=== PATIENT | female | born 1940 | race Caucasian/White ===

== ENCOUNTER 2017-05-27 14:16 | Emergency (ER) | payer OTHER ==
[~2017-05-27 14:16] MED LIST: ACETAMINOPHEN/H1 TA6 PO; AMBIEN10 MG PO; CIPRO500 MG PO; HYDRALAZINE HCL25 MG; L20 PO; LAC PO; MYCP TOP; NOR5 PO; PAXIL10 MG; TRAMADOL HCL50 MG; TRAMADOL50 MG PO; XAN1 PO; XANAX0.5 MG PO; ZES20 PO; ZOC20 PO; ZOLPIDEM TART10 MG PO
[2017-05-27 15:31] LABS: BASOPHIL % 0.6 % (0-2); PLATELET COUNT 155 x10^3mcL (130-400); RED CELL DISTRIBUTION WIDTH 13.8 % (11.5-14.5)
[2017-05-27 15:52] LABS: CALCIUM 8.3 mg/dL (8.5-10.1); CARBON DIOXIDE 26.4 mmol/L (21-32); CHLORIDE SERUM 102 mmol/L (98-107); CREATININE SERUM 1.1 mg/dL (0.6-1.0); GLUCOSE SERUM 122 mg/dL (74-106); POTASSIUM SERUM 4.3 mmol/L (3.5-5.1); SODIUM SERUM 136 mmol/L (136-145)
[2017-05-27 15:56] LABS: ALKALINE PHOSPHATASE 55 U/L (46-116); ALT/SGPT 15 U/L (14-59); AST/SGOT 14 U/L (15-37); BILIRUBIN TOTAL 0.5 mg/dL (0.20-1.00); TOTAL PROTEIN, SERUM 7.3 g/dL (6.4-8.2)
[2017-05-27 16:00] LABS: ALBUMIN 3.2 g/dL (3.4-5.0)
[2017-05-27] MEDS ORDERED: NORCO1 TA2 (17:40)
[2017-05-27 18:44] VITALS: BP 118/63
[2017-05-27 20:24] LABS: MAGNESIUM 2.2 mg/dL (1.8-2.4); PHOSPHOROUS 3.3 mg/dL (2.5-4.9)
[2017-05-27 20:25] LABS: CHOLESTEROL/HDL RATIO 2.3
[2017-05-27 20:35] LABS: FREE T4 1.02 ng/dL (0.76-1.46); FREE THYROXINE INDEX 1.8 ug/dL (1.4-4.5); T4(THYROXINE) 5.4 ug/dL (4.7-13.3)
== END 2017-05-27 19:20 | disposition left against medical advice (07) ==
LOC: ED 14:16 → DU 17:15 → ED 17:15
PROVIDERS: Emergency Medicine Emergency Medical Services; Family Medicine
DX: J98.01 Acute bronchospasm (principal); R06.02 Shortness of breath; R11.2 Nausea with vomiting, unspecified
CPT/HCPCS: 36415; 83880; 84439; 85378; 87804; J7030; J7613; J7644; Q0092

== ENCOUNTER 2018-09-12 10:25 | Inpatient (IN) | payer OTHER ==
[~2018-09-12] VITALS: Ht 152.4 cm; Wt 60.0 kg
[~2018-09-12 10:25] MED LIST changes: +NORCO1 TA2
[2018-09-12 10:31] VITALS: Ht 152.4 cm; Wt 60.0 kg
[2018-09-12 11:57] LABS: BASOPHIL % 0.2 % (0-2); PLATELET COUNT 188 x10^3mcL (130-400); RED CELL DISTRIBUTION WIDTH 14.4 % (11.5-14.5)
[2018-09-12 12:24] LABS: CALCIUM 9.7 mg/dL (8.5-10.1); CARBON DIOXIDE 32.8 mmol/L (21-32); CHLORIDE SERUM 102 mmol/L (98-107); GLUCOSE SERUM 93 mg/dL (74-106); POTASSIUM SERUM 3.5 mmol/L (3.5-5.1); SODIUM SERUM 143 mmol/L (136-145)
[2018-09-12 12:32] LABS: ALBUMIN 3.7 g/dL (3.4-5.0); ALKALINE PHOSPHATASE 65 U/L (46-116); ALT/SGPT 17 U/L (14-59); AST/SGOT 18 U/L (15-37); BILIRUBIN TOTAL 1.7 mg/dL (0.20-1.00); CHOLESTEROL 140 mg/dL (<200); HDL CHOLESTEROL 77 mg/dL (40-60); LIPASE 61 IU/L (73-393); T4(THYROXINE) 7.2 ug/dL (4.7-13.3); TOTAL PROTEIN, SERUM 8.3 g/dL (6.4-8.2)
[2018-09-12 12:59] LABS: UA SPECIFIC GRAVITY >=1.030 (1.005-1.035); microscopic required? YES; urine erythrocyte NEGATIVE (NEGATIVE)
[2018-09-12 13:09] LABS: AMPHETAMINE QUAL UR NONE DETECTED (See below)
[2018-09-12] MEDS ORDERED: SLEEPING PILL (15:18)
[2018-09-12 19:02] VITALS: BP 167/94
[2018-09-12 20:47] VITALS: BP 162/84
[2018-09-12 22:14] VITALS: BP 155/72
[2018-09-13 04:48] VITALS: BP 146/52
[2018-09-13 07:17] LABS: BASOPHIL % 0.5 % (0-2); PLATELET COUNT 172 x10^3mcL (130-400); RED CELL DISTRIBUTION WIDTH 14.5 % (11.5-14.5)
[2018-09-13 07:34] LABS: ALKALINE PHOSPHATASE 60 U/L (46-116); ALT/SGPT 19 U/L (14-59); AST/SGOT 11 U/L (15-37); BILIRUBIN TOTAL 1.2 mg/dL (0.20-1.00); CALCIUM 9.3 mg/dL (8.5-10.1); CARBON DIOXIDE 34.6 mmol/L (21-32); CHLORIDE SERUM 102 mmol/L (98-107); GLUCOSE SERUM 78 mg/dL (74-106); MAGNESIUM 1.8 mg/dL (1.8-2.4); POTASSIUM SERUM 3.7 mmol/L (3.5-5.1); SODIUM SERUM 144 mmol/L (136-145); TOTAL PROTEIN, SERUM 7.6 g/dL (6.4-8.2)
[2018-09-13 07:35] LABS: ALBUMIN 3.3 g/dL (3.4-5.0)
[2018-09-13 09:15] VITALS: BP 163/82
[2018-09-13 12:40] VITALS: BP 157/90
[2018-09-13 18:05] VITALS: BP 169/86
[2018-09-13 21:28] VITALS: BP 115/71
[2018-09-14 04:44] VITALS: BP 117/58
[2018-09-14 06:53] LABS: CHLORIDE SERUM 101 mmol/L (98-107); CREATININE SERUM 1.1 mg/dL (0.6-1.0); GLUCOSE SERUM 90 mg/dL (74-106); MAGNESIUM 1.9 mg/dL (1.8-2.4); POTASSIUM SERUM 3.3 mmol/L (3.5-5.1); SODIUM SERUM 141 mmol/L (136-145)
[2018-09-14 07:17] LABS: BASOPHIL % 0.5 % (0-2); PLATELET COUNT 183 x10^3mcL (130-400); RED CELL DISTRIBUTION WIDTH 14.2 % (11.5-14.5)
[2018-09-14 09:10] VITALS: BP 143/84
[2018-09-14 14:13] VITALS: BP 142/72
[2018-09-14 16:20] VITALS: BP 137/62
[2018-09-14 17:44] VITALS: BP 142/72
[2018-09-14 20:50] VITALS: BP 155/75
[2018-09-15 06:11] VITALS: BP 117/61
[2018-09-15 07:26] LABS: BASOPHIL % 0.3 % (0-2); CALCIUM 9.2 mg/dL (8.5-10.1); CARBON DIOXIDE 34.3 mmol/L (21-32); CHLORIDE SERUM 100 mmol/L (98-107); CREATININE SERUM 0.9 mg/dL (0.6-1.0); GLUCOSE SERUM 109 mg/dL (74-106); MAGNESIUM 1.8 mg/dL (1.8-2.4); PLATELET COUNT 195 x10^3mcL (130-400); POTASSIUM SERUM 4.5 mmol/L (3.5-5.1); RED CELL DISTRIBUTION WIDTH 14.4 % (11.5-14.5); SODIUM SERUM 140 mmol/L (136-145)
[2018-09-15 09:08] VITALS: BP 133/59
[2018-09-15 13:25] VITALS: BP 118/61
[2018-09-15] MEDS ORDERED: ROC1I IV (15:22)
[2018-09-15 16:41] VITALS: BP 112/76
[2018-09-15 20:32] VITALS: BP 103/55
[2018-09-16 00:49] VITALS: BP 123/67
[2018-09-16 05:03] VITALS: BP 98/53
[2018-09-16 06:42] LABS: BASOPHIL % 0.4 % (0-2); PLATELET COUNT 194 x10^3mcL (130-400); RED CELL DISTRIBUTION WIDTH 14.3 % (11.5-14.5)
[2018-09-16 06:45] VITALS: BP 97/70
[2018-09-16 06:51] LABS: CARBON DIOXIDE 35.1 mmol/L (21-32); CHLORIDE SERUM 101 mmol/L (98-107); CREATININE SERUM 0.9 mg/dL (0.6-1.0); GLUCOSE SERUM 120 mg/dL (74-106); MAGNESIUM 1.7 mg/dL (1.8-2.4); POTASSIUM SERUM 3.7 mmol/L (3.5-5.1); SODIUM SERUM 142 mmol/L (136-145)
[2018-09-16 09:29] VITALS: BP 109/53
[2018-09-16 12:50] VITALS: BP 132/82
== END 2018-09-16 14:21 | disposition hospice, home (50) | DRG 179 ==
LOC: ED 10:25 → DU 16:45 → EDBEDREQ 16:46 → DU 17:58
PROVIDERS: Emergency Medicine; Internal Medicine Pulmonary Disease; ADMIT Internal Medicine Pulmonary Disease
DX: J69.0 Pneumonitis due to inhalation of food and vomit (principal); G89.4 Chronic pain syndrome; M15.9 Polyosteoarthritis, unspecified; E86.9 Volume depletion, unspecified; R13.10 Dysphagia, unspecified; I69.391 Dysphagia following cerebral infarction; Z68.22 Body mass index [BMI] 22.0-22.9, adult
CPT/HCPCS: 82962; 83880; 92526-GN; 92610; G0480; J0456; J0696; J1644; J1940; J1956; J2270; J3480; J3490; J7030; J7040; J7121; J7620; Q0092